=== PATIENT | female | born 1965 | race Caucasian/White ===

== ENCOUNTER → 2020-05-05 15:15 | Outpatient (CLI) | payer OTHER, SELFPAY ==
--- NOTE | 2020-05-05 15:19 | DI.MRI.S_ITS ---
PROCEDURE: MR HEAD/BRAIN WO/W CON INDICATIONS: BENIGN NEOPLASM OF CEREBRAL MENINGES TECHNIQUE: Noncontrast axial T1 spin echo, axial T2 fast spin echo, sagittal and axial FLAIR, coronal T2 fast spin echo, axial gradient echo, axial diffusion and ADC through the brain. After the administration of contrast, axial and coronal T1 spin echo with fat saturation through the brain. COMPARISON: None. FINDINGS: Image quality: Excellent. CSF spaces: Basal cisterns are patent. No extra-axial fluid collections. Ventricles are normal in size and shape. Brain: No midline shift. No intracranial bleeds. There is a dural based avidly enhancing mass at the inferior aspect of the right anterior frontal lobe, measuring 23 mm anteroposterior by 20 mm craniocaudal by 22 mm transverse. There is moderate surrounding edema within the right anteroinferior frontal lobe. This mass demonstrates low gradient echo signal intensity. There is cerebral volume loss for age. There is periventricular white matter chronic small vessel ischemic change. The brainstem appears normal. Diffusion-weighted images demonstrate no acute ischemic insults. No chronic ischemic insults. Normal intravascular flow voids are present. Skull and face: Calvarial marrow is normal in signal. Orbits appear normal. Sinuses: Sinuses and mastoids appear clear. IMPRESSION: 1. Right inferior frontal meningioma with surrounding edema in the right frontal lobe. Dictated by: Bonita Avery M.D. on 05/05/2020 at 16:24 Approved by: Bonita Avery M.D. on 05/05/2020 at 16:27
== END ==
PROVIDERS: PCP Family Medicine; Referring Provider Family Medicine; Visit Provider Family Medicine
DX: D32.0 Benign neoplasm of cerebral meninges (principal); G93.6 Cerebral edema
CPT/HCPCS: 70553; A9579

== ENCOUNTER → 2020-08-18 16:26 | Outpatient (CLI) | payer OTHER, SELFPAY ==
--- NOTE | 2020-08-18 16:31 | DI.MG.S_ITS ---
BILATERAL DIGITAL SCREENING MAMMOGRAM 3D/2D WITH CAD: 08/18/2020 CLINICAL: Routine screening. Family history of breast cancer. Comparison is made to exams dated: 03/27/2016 mammogram and 03/18/2014 mammogram - [facility]. There are scattered fibroglandular elements in both breasts. Current study was also evaluated with a Computer Aided Detection (CAD) system. No significant masses, calcifications, or other findings are seen in either breast. There has been no significant interval change. IMPRESSION: NEGATIVE There is no mammographic evidence of malignancy. A 1 year screening mammogram is recommended. This exam was interpreted at Station ID: [id number]. NOTE: For mammograms, a report in lay terms will be sent to the patient. Approximately 15% of breast malignancies will not be visualized mammographically. In the management of a palpable breast mass, a negative mammogram must not discourage biopsy of a clinically suspicious lesion. Electronically Signed By: Shane koehler/shakira:08/18/2020 17:07:31 letter sent: Normal Exam ACR BI-RADS Category 1: Negative [id number]
== END ==
PROVIDERS: PCP Family Medicine; Referring Provider Specialist; Visit Provider Specialist
DX: Z12.31 Encounter for screening mammogram for malignant neoplasm of breast (principal); Z80.3 Family history of malignant neoplasm of breast
CPT/HCPCS: 77063; 77067

== ENCOUNTER → 2023-10-10 09:29 | Outpatient (CLI) | payer OTHER, SELFPAY ==
--- NOTE | 2023-10-10 09:31 | DI.RAD.S_ITS ---
PROCEDURE: XR WRIST LT MIN 3V INDICATIONS: Left wrist injury TECHNIQUE: 4 views of the wrist were acquired. COMPARISON: None. FINDINGS: Bones: No fractures or dislocations. Postoperative changes within the distal radius with plate and screw fixation hardware. The hardware appears intact without surrounding fracture or lucency. Mild radiocarpal joint degeneration. No suspicious bony lesions. Soft tissues: No suspicious soft tissue calcifications. IMPRESSION: No acute osseous abnormalities. Postsurgical changes within the distal radius without evidence of complication. Dictated by: Edward Boston M.D. on 10/10/2023 at 12:37 Approved by: Edward Boston M.D. on 10/10/2023 at 12:38
== END ==
PROVIDERS: PCP Family Medicine; Referring Provider Nurse Practitioner Family; Visit Provider Nurse Practitioner Family
DX: S69.92XA Unspecified injury of left wrist, hand and finger(s), initial encounter (principal); M19.032 Primary osteoarthritis, left wrist; X58.XXXA Exposure to other specified factors, initial encounter
CPT/HCPCS: 73110